=== PATIENT | male | born 1960 ===

== ENCOUNTER 2020-01-16 07:51 | Day surgery (SDC) | payer OTHER ==
[~2020-01-16 07:51] MED LIST: ASA81 MG PO; LIPITOR40 M1 PO; SPIRONOLACTONE PO; TOPROL XL50 MG PO; ZESTRIL40 M1 PO; ZETIA10 MG PO
[2020-01-16] MEDS ORDERED: COLACE100 MG PO (12:38)
[2020-01-16] MEDS ORDERED: PERCOCET 5-3251 EACH PO (12:38)
[2020-01-17] MEDS ORDERED: ULTRACET PO (13:28)
[2020-01-17] MEDS ORDERED: NEURONTIN300 MG PO (13:28)
== END 2020-01-17 08:00 | disposition home or self-care (01) ==
LOC: CIR.AMB 07:51 → O/R 19:38 → SURG 19:38 → O/R 20:22 → SURG 20:22 → O/R 20:23 → CIR.AMB 01-17 08:00 → SURG 01-17 21:21 → O/R 01-17 21:21
PROVIDERS: ATTEND Surgery
DX: K64.8 Other hemorrhoids (principal); Z20.828 Contact with and (suspected) exposure to other viral communicable diseases